=== PATIENT | female | born 1980 | race Caucasian/White ===

== ENCOUNTER 2017-06-27 15:47 | Emergency (ER) | payer OTHER ==
[~2017-06-27] VITALS: Ht 154.9 cm; Wt 97.5 kg
[~2017-06-27 15:47] MED LIST: ACEBUTCAFT; ALBU90OI6; AMIT25; AMIT25 PO; CYCL10 PO; DULO30 PO; DULO60 PO; ERGO400 PO; Esgic Tablet1 EACH; HYDACE5 PO; HYDACE5325 PO; HYDPAM25; LEVSOD25 PO; PROM25 PO; PROP10 PO; QUET100; QUET100 PO; RXHYDACE PO; RXPROM25 PO; VENL150ER
[2017-06-27 16:27] LABS: BASOPHILS ABSOLUTE AUTO 0.05 K/mm3 (0.00-0.23); BASOPHILS PERCENT AUTO 0 % (0-2); EOSINOPHILS ABSOLUTE AUTO 0.04 K/mm3 (0.00-0.68); EOSINOPHILS PERCENT AUTO 0 % (0-6); Hematocrit 43.5 % (33.0-51.0); Hemoglobin 14.6 g/dL (11.5-16.0); IMMATURE GRAN ABSOLUTE AUTO 0.05 K/mm3 (0.00-0.10); IMMATURE GRAN PERCENT AUTO 0 % (0-1); LYMPHOCYTES ABSOLUTE AUTO 1.05 K/mm3 (0.84-5.20); LYMPHOCYTES PERCENT AUTO 8 % (21-46); MONOCYTES ABSOLUTE AUTO 0.42 K/mm3 (0.16-1.47); MONOCYTES PERCENT AUTO 3 % (4-13); Mean Corpuscular HGB 32.3 pg (26.0-34.0); Mean Corpuscular HGB Conc 33.6 g/dL (31.5-36.5); Mean Corpuscular Volume 96 fL (80-100); Mean Platelet Volume 11.5 fL (9.1-12.4); NEUTROPHILS ABSOLUTE AUTO 10.86 K/mm3 (1.96-9.15); NEUTROPHILS PERCENT AUTO 87 % (41-73); Platelet Count 247 K/mm3 (150-400); RDW Coefficient Variation 12.7 % (11.7-14.2); RDW Standard Deviation 45.3 fL (35.1-46.3); Red Blood Cell Count 4.52 M/mm3 (3.80-5.20); White Blood Cell Count 12.47 K/mm3 (4.00-11.30)
[2017-06-27 16:48] LABS: Alanine Aminotransfer (ALT/SGP 23 U/L (12-78); Albumin, Blood 3.3 g/dL (3.4-5.0); Albumin/Globulin Ratio 0.8 (0.8-1.8); Alk Phos 77 U/L (50-136); Anion Gap 9 mmol/L (6-16); Aspartate Aminotrans (AST/SGOT 31 U/L (12-37); Bilirubin, Total 0.7 mg/dL (0.1-1.0); Blood Urea Nitrogen 7 mg/dL (8-24); Bun/Creatinine Ratio 14.1 (12.0-20.0); CO2, Blood 19 mmol/L (21-32); Calcium, Blood 8.8 mg/dL (8.5-10.1); Chloride, Blood 108 mmol/L (98-108); Globulin, Blood 4.4 g/dL (2.2-4.0); Glomerular Filtration Rate >60 (60-); Glucose, Blood 97 mg/dL (70-99); Potassium, Blood 3.9 mmol/L (3.5-5.5); Sodium, Blood 136 mmol/L (136-145); Total Protein, Blood 7.7 g/dL (6.4-8.2)
[2017-06-27 18:31] LABS: Source, Urine Clean Catch
[2017-06-27 18:39] LABS: Appearance, Urine Hazy (Clear); Blood, Urine 1+ (Neg); Color, Urine Amber (P-Yellow); Glucose Qualitative, Urine Neg (Neg); Ketones, Urine 1+ (Neg); Leukocyte Esterase, Urine 1+ (Neg); Nitrite, Urine Neg (Neg); Protein, Urine Neg (Neg); Urobilinogen, Urine NORM (Normal)
[2017-06-27 19:27] LABS: Bilirubin, Urine 1+ (Neg)
[2017-06-27 19:31] LABS: Bacteria Few /hpf; Squamous Epithelial Cells Few /hpf (Few)
[2017-06-27] MEDS ORDERED: Percocet 5-3251 EACH PO (20:20)
[2017-06-27] MEDS ORDERED: IBUP800 PO (20:20)
[2017-06-27] MEDS ORDERED: Bactrim Ds Tab1 EACH PO (20:20)
== END 2017-06-27 20:34 | disposition home or self-care (01) ==
LOC: ER 15:47
PROVIDERS: Emergency Medicine
DX: N12 Tubulo-interstitial nephritis, not specified as acute or chronic (principal); Z88.1 Allergy status to other antibiotic agents; Z88.8 Allergy status to other drugs, medicaments and biological substances; Z88.5 Allergy status to narcotic agent; Z79.899 Other long term (current) drug therapy; F32.9 Major depressive disorder, single episode, unspecified
CPT/HCPCS: 36415; 80053; 81001; 81025; 83690; 85025; 87086; J1885; J3010

== ENCOUNTER 2017-08-01 15:18 | Emergency (ER) | payer OTHER ==
[~2017-08-01] VITALS: Ht 152.4 cm; Wt 95.2 kg
[~2017-08-01 15:18] MED LIST changes: +Bactrim Ds Tab1 EACH PO; +IBUP800 PO; +Percocet 5-3251 EACH PO
[2017-08-01 17:07] LABS: Source, Urine Clean Catch
[2017-08-01 17:14] LABS: Appearance, Urine Clear (Clear); Bilirubin, Urine Neg (Neg); Blood, Urine Neg (Neg); Color, Urine Yellow (P-Yellow); Glucose Qualitative, Urine Neg (Neg); Ketones, Urine Neg (Neg); Leukocyte Esterase, Urine 1+ (Neg); Nitrite, Urine Neg (Neg); Protein, Urine Neg (Neg); Specific Gravity, Urine 1.015 (1.003-1.022); Urobilinogen, Urine NORM (Normal)
[2017-08-01 17:22] LABS: Bacteria Few /hpf; Red Blood Cells, Urine 0-2 /hpf (0-2); Squamous Epithelial Cells Few /hpf (Few); White Blood Cells, Urine 0-2 /hpf (0-5)
[2017-08-01] MEDS ORDERED: Zofran Odt4 MG SL (17:26)
[2017-08-01] MEDS ORDERED: Pyridium200 MG PO (17:26)
== END 2017-08-01 17:37 | disposition home or self-care (01) ==
LOC: ER 15:18
PROVIDERS: Physician Assistant
DX: R30.0 Dysuria (principal); F32.9 Major depressive disorder, single episode, unspecified; Z88.1 Allergy status to other antibiotic agents; Z88.8 Allergy status to other drugs, medicaments and biological substances; Z88.5 Allergy status to narcotic agent; Z79.899 Other long term (current) drug therapy
CPT/HCPCS: 81001; 81025; 87086; 96372; 99283; J1885

== ENCOUNTER → 2017-11-01 | Outpatient (CLI) | payer OTHER ==
[~2017-11-01] MED LIST changes: +Pyridium200 MG PO; +Zofran Odt4 MG SL
== END ==
LOC: LAB 14:00 → LAB SHORT 14:00 → LAB FUT 10-26 11:30 → EDSTATUS 10-26 11:30
DX: L56.8 Other specified acute skin changes due to ultraviolet radiation (principal)
CPT/HCPCS: 81050

== ENCOUNTER 2019-06-12 14:47 | Emergency (ER) | payer OTHER ==
[~2019-06-12] VITALS: Ht 152.4 cm; Wt 93.0 kg
[~2019-06-12 14:47] MED LIST changes: +Norco 5-325 Ta1 EACH PO; +Zantac150 MG PO
[2019-06-12 16:13] LABS: BASOPHILS ABSOLUTE AUTO 0.05 K/mm3 (0.00-0.23); BASOPHILS PERCENT AUTO 0 % (0-2); EOSINOPHILS ABSOLUTE AUTO 0.16 K/mm3 (0.00-0.68); EOSINOPHILS PERCENT AUTO 1 % (0-6); Hematocrit 42.8 % (33.0-51.0); Hemoglobin 14.1 g/dL (11.5-16.0); IMMATURE GRAN ABSOLUTE AUTO 0.03 K/mm3 (0.00-0.10); IMMATURE GRAN PERCENT AUTO 0 % (0-1); LYMPHOCYTES ABSOLUTE AUTO 2.52 K/mm3 (0.84-5.20); LYMPHOCYTES PERCENT AUTO 20 % (21-46); MONOCYTES PERCENT AUTO 7 % (4-13); Mean Corpuscular HGB Conc 32.9 g/dL (31.5-36.5); Mean Corpuscular Volume 97 fL (80-100); Mean Platelet Volume 10.4 fL (9.1-12.4); NEUTROPHILS ABSOLUTE AUTO 8.84 K/mm3 (1.96-9.15); NEUTROPHILS PERCENT AUTO 71 % (41-73); Platelet Count 323 K/mm3 (150-400); RDW Coefficient Variation 13.4 % (11.7-14.2); RDW Standard Deviation 48.1 fL (35.1-46.3)
[2019-06-12 16:27] LABS: Alanine Aminotransfer (ALT/SGP 17 U/L (12-78); Albumin, Blood 3.2 g/dL (3.4-5.0); Albumin/Globulin Ratio 0.7 (0.8-1.8); Alk Phos 69 U/L (50-136); Anion Gap 8 mmol/L (6-16); Aspartate Aminotrans (AST/SGOT 27 U/L (12-37); Bilirubin, Total 0.3 mg/dL (0.1-1.0); Blood Urea Nitrogen 6 mg/dL (8-24); Bun/Creatinine Ratio 7.8 (12.0-20.0); CO2, Blood 21 mmol/L (21-32); Calcium, Blood 8.8 mg/dL (8.5-10.1); Chloride, Blood 108 mmol/L (98-108); Creatinine, Blood 0.77 mg/dL (0.40-1.00); Globulin, Blood 4.8 g/dL (2.2-4.0); Glomerular Filtration Rate >60 (60-); Glucose, Blood 89 mg/dL (70-99); Potassium, Blood 3.8 mmol/L (3.5-5.5); Sodium, Blood 137 mmol/L (136-145)
[2019-06-12 17:08] LABS: Source, Urine Clean Catch
[2019-06-12 17:44] LABS: Blood, Urine 4+ (Neg); Glucose Qualitative, Urine Neg (Neg); Ketones, Urine 1+ (Neg); Leukocyte Esterase, Urine 3+ (Neg); Nitrite, Urine Neg (Neg); Protein, Urine 2+ (Neg); Specific Gravity, Urine 1.025 (1.003-1.022); Urobilinogen, Urine 1+ (Normal)
[2019-06-12 18:02] LABS: Bilirubin, Urine 1+ (Neg); Color, Urine Yellow (P-Yellow)
[2019-06-12 18:03] LABS: Appearance, Urine Cloudy (Clear)
[2019-06-12 18:04] LABS: Red Blood Cells, Urine 25-50 /hpf (0-2); Squamous Epithelial Cells Many /hpf (Few); White Blood Cells, Urine 50-100 /hpf (0-5)
[2019-06-12 18:05] LABS: Bacteria Mod /hpf
[2019-06-12] MEDS ORDERED: [UNRECOGNIZED DRUG - OTHER] PO (18:50)
[2019-06-12] MEDS ORDERED: Cymbalta30 MG PO (18:50)
[2019-06-12] MEDS ORDERED: PROP120ER PO (18:52)
[2019-06-12] MEDS ORDERED: Ranitidine HCl300 MG PO (18:52)
[2019-06-12] MEDS ORDERED: QUETIAPINE FUM100 MG PO (18:52)
[2019-06-12] MEDS ORDERED: QUETIAPINE FUMA25 MG PO (18:53)
[2019-06-12] MEDS ORDERED: SYNTHROID50 MC1 PO (18:53)
[2019-06-12] MEDS ORDERED: Zofran8 MG PO (19:13)
[2019-06-12] MEDS ORDERED: CEFP200 PO (19:13)
[2019-06-12] MEDS ORDERED: Roxicodone5 MG PO (19:13)
== END 2019-06-12 19:36 | disposition home or self-care (01) ==
LOC: ER 14:47
PROVIDERS: Physician Assistant
DX: N12 Tubulo-interstitial nephritis, not specified as acute or chronic (principal); N20.0 Calculus of kidney; F32.9 Major depressive disorder, single episode, unspecified; M79.7 Fibromyalgia; F41.9 Anxiety disorder, unspecified; Z79.899 Other long term (current) drug therapy
CPT/HCPCS: 36415; 74176; 80053; 81001; 81025; 85025; 87077; 87086; 87186; 96361; 96374; 96375; 99285-25; A9270-GY; J1170; J1885; J2405; J7030

== ENCOUNTER → 2019-06-27 | Outpatient (CLI) | payer OTHER ==
[~2019-06-27] MED LIST changes: +CEFP200 PO; +Cymbalta30 MG PO; +PROP120ER PO; +QUETIAPINE FUM100 MG PO; +QUETIAPINE FUMA25 MG PO; +Ranitidine HCl300 MG PO; +Roxicodone5 MG PO; +SYNTHROID50 MC1 PO; +Zofran8 MG PO; +[UNRECOGNIZED DRUG - OTHER] PO
== END ==
DX: N10 Acute pyelonephritis (principal)

== ENCOUNTER 2019-07-20 11:52 | Emergency (ER) | payer OTHER ==
[~2019-07-20] VITALS: Ht 152.4 cm; Wt 93.0 kg
[2019-07-20] MEDS ORDERED: TIZA4 PO (14:17)
[2019-07-20] MEDS ORDERED: Vibramycin100 MG PO (15:31)
== END 2019-07-20 15:46 | disposition home or self-care (01) ==
LOC: ER 11:52
DX: L03.211 Cellulitis of face (principal); F32.9 Major depressive disorder, single episode, unspecified; F41.9 Anxiety disorder, unspecified; Z88.1 Allergy status to other antibiotic agents; Z88.8 Allergy status to other drugs, medicaments and biological substances; Z88.5 Allergy status to narcotic agent; Z79.899 Other long term (current) drug therapy
CPT/HCPCS: 99283